=== PATIENT | female | born 1990 | race Caucasian/White ===

== ENCOUNTER 2024-03-08 15:42 | Outpatient (CLI) | payer BC, SELFPAY | END 2024-03-08 15:43 | disposition home or self-care (01) | PROVIDERS: PCP Family Medicine; Visit Provider Obstetrics & Gynecology | DX: O36.80X0 Pregnancy with inconclusive fetal viability, not applicable or unspecified (principal); O20.9 Hemorrhage in early pregnancy, unspecified; Z67.40 Type O blood, Rh positive | CPT/HCPCS: 84702; 86850; 86900; 86901 ==

== ENCOUNTER 2024-03-10 08:34 | Outpatient (CLI) | payer BC, SELFPAY | END 2024-03-10 08:35 | disposition home or self-care (01) | LOC: NFLDREF 03-11 12:55 | PROVIDERS: PCP Family Medicine; Referring Provider Family Medicine; Visit Provider Obstetrics & Gynecology | DX: O20.9 Hemorrhage in early pregnancy, unspecified (principal) | CPT/HCPCS: 84702 ==

== ENCOUNTER 2024-03-12 13:37 | Outpatient (CLI) | payer BC, SELFPAY | END 2024-03-12 13:38 | disposition home or self-care (01) | LOC: NFLDREF 03-15 06:43 | PROVIDERS: PCP Family Medicine; Referring Provider Family Medicine; Visit Provider Obstetrics & Gynecology | DX: O02.89 Other abnormal products of conception (principal) | CPT/HCPCS: 84702 ==

== ENCOUNTER 2024-03-17 13:02 | Outpatient (CLI) | payer BC, SELFPAY ==
--- NOTE | 2024-03-17 13:00 | CRLHL7_ITS ---
For Patients: As a result of the Century Cures Act, medical imaging exams and procedure reports are released immediately into your electronic medical record. You may view this report before your referring provider. If you have questions, please contact your health care provider. INDICATION: Abnormal vaginal bleeding in early . Down trending beta hCG. TECHNIQUE: Transabdominal and transvaginal limited obstetric ultrasound examination of the pelvis was performed. Grayscale and color Doppler images were obtained. COMPARISON: None. FINDINGS: Uterus: Normal in echotexture. No suspicious masses. Endometrium: No significant endometrial free fluid. Intrauterine gestation: Nonvisualized. Right Ovary: Measures 3.2 x 1.3 x 1.9 cm. No suspicious masses. Normal arterial and venous flow on color Doppler imaging. Left ovary: Measures 3.1 x 1.3 x 1.5 cm. Hypoechoic avascular left paraovarian structure measuring 3.5 cm. Normal arterial and venous flow on color Doppler imaging. Cul-de-sac: Trace amount of pelvic free fluid. IMPRESSION: 1. No intrauterine gestation identified. No definite ectopic identified. 2. Trace amount of pelvic free fluid. An ectopic can not be excluded. Recommend continued obstetric evaluation, serial beta HCG and repeat pelvic ultrasound in 7-10 days. Dictated by Shabbir Elam MD @ 03/17/2024 2:20:29 PM (Electronically Signed)
== END 2024-03-17 13:03 | disposition home or self-care (01) ==
LOC: US 13:03
PROVIDERS: PCP Family Medicine; Visit Provider Obstetrics & Gynecology
DX: O20.9 Hemorrhage in early pregnancy, unspecified (principal); O36.80X0 Pregnancy with inconclusive fetal viability, not applicable or unspecified
CPT/HCPCS: 76817

== ENCOUNTER 2024-03-17 13:51 | Outpatient (CLI) | payer BC, SELFPAY | END 2024-03-17 13:52 | disposition home or self-care (01) | LOC: NFLDREF 13:52 | PROVIDERS: PCP Family Medicine; Visit Provider Obstetrics & Gynecology | DX: O36.80X0 Pregnancy with inconclusive fetal viability, not applicable or unspecified (principal) | CPT/HCPCS: 76817; 80053; 84702 ==

== ENCOUNTER 2024-03-19 09:21 | Outpatient (CLI) | payer BC, SELFPAY | END 2024-03-19 09:22 | disposition home or self-care (01) | LOC: NFLDREF 03-20 22:58 | PROVIDERS: PCP Family Medicine; Referring Provider Family Medicine; Visit Provider Obstetrics & Gynecology | DX: O20.9 Hemorrhage in early pregnancy, unspecified (principal) | CPT/HCPCS: 84702 ==

== ENCOUNTER 2024-03-22 11:05 | Outpatient (CLI) | payer BC, SELFPAY | END 2024-03-22 11:06 | disposition home or self-care (01) | LOC: NFLDREF 17:32 | PROVIDERS: PCP Family Medicine; Referring Provider Family Medicine; Visit Provider Obstetrics & Gynecology | DX: O20.9 Hemorrhage in early pregnancy, unspecified (principal) | CPT/HCPCS: 84702 ==

== ENCOUNTER 2024-04-14 13:53 | Outpatient (CLI) | payer BC, SELFPAY | END 2024-04-14 13:54 | disposition home or self-care (01) | LOC: NFLDREF 04-19 03:40 | PROVIDERS: PCP Family Medicine; Referring Provider Family Medicine; Visit Provider Obstetrics & Gynecology | DX: O03.9 Complete or unspecified spontaneous abortion without complication (principal) | CPT/HCPCS: 84702 ==

== ENCOUNTER 2024-09-03 08:18 | Outpatient (CLI) | payer BC, SELFPAY | END 2024-09-03 08:19 | disposition home or self-care (01) | LOC: NFLDREF 09-06 01:08 | PROVIDERS: PCP Family Medicine; Referring Provider Family Medicine; Visit Provider Obstetrics & Gynecology | DX: O09.291 Supervision of pregnancy with other poor reproductive or obstetric history, first trimester (principal) | CPT/HCPCS: 84702 ==

== ENCOUNTER 2024-09-06 08:14 | Outpatient (CLI) | payer BC, SELFPAY | END 2024-09-06 08:15 | disposition home or self-care (01) | LOC: NFLDREF 15:11 | PROVIDERS: PCP Family Medicine; Referring Provider Family Medicine; Visit Provider Obstetrics & Gynecology | DX: O09.291 Supervision of pregnancy with other poor reproductive or obstetric history, first trimester (principal); Z3A.01 Less than 8 weeks gestation of pregnancy | CPT/HCPCS: 84702 ==

== ENCOUNTER 2024-09-07 17:29 | Outpatient (CLI) | payer BC, SELFPAY ==
--- NOTE | 2024-09-07 17:30 | CRLHL7_ITS ---
For Patients: As a result of the Century Cures Act, medical imaging exams and procedure reports are released immediately into your electronic medical record. You may view this report before your referring provider. If you have questions, please contact your health care provider. OB ULTRASOUND LESS THAN 14 WEEKS, 09/07/2024 CLINICAL HISTORY: Dating and viability. History of ectopic. COMPARISON: None. TECHNIQUE: Real time paiz scale imaging of the fetus was performed. Transvaginal imaging performed. FINDINGS: IMAGING: TV. LMP: 07/25/2024. BAKARI by LMP: 05/01/2025. GA: 6 weeks 2 days. CRL: 0.32 cm, 6 weeks 0 days. BAKARI 05/03/2025. FHR: 100 bpm. GEST SAC: 1.8 cm, appears WNL. YOLK SAC: 2.2 mm, appears WNL. RIGHT OV: WNL 3.7 x 1.9 x 2.9 cm. CL LEFT OV: WNL 2.1 X 1.0 X 1.2 cm. IMPRESSION: Single living intrauterine measuring 6 weeks 0 days and sonographic due date 05/03/2025. heart rate is low at 100 beats per minute. Follow-up recommended in 2-3 weeks. Finn Rich M.D. Diagnostic Radiologist [email or web address] Transcribed: 10:30 am DW/Dictated by: Finn Rich MD @ 09/08/2024 6:57:00 AM (Electronically Signed)
== END 2024-09-07 17:30 | disposition home or self-care (01) ==
LOC: US 17:30
PROVIDERS: PCP Family Medicine; Visit Provider Obstetrics & Gynecology
DX: O09.11 Supervision of pregnancy with history of ectopic pregnancy, first trimester (principal); Z3A.01 Less than 8 weeks gestation of pregnancy
CPT/HCPCS: 76817

== ENCOUNTER 2024-10-05 17:35 | Outpatient (CLI) | payer BC, SELFPAY ==
--- NOTE | 2024-10-05 17:30 | CRLHL7_ITS ---
For Patients: As a result of the Cures Act, medical imaging exams and procedure reports are released immediately into your electronic medical record. You may view this report before your referring provider. If you have questions, please contact your health care provider. OB ULTRASOUND INDICATION: Dating and viability. Follow-up from 09/07/2024. TECHNIQUE: Real time grayscale imaging of the fetus was performed. Transabdominal. LMP: 07/25/2024. BAKARI by LMP: 05/01/2025. GA: 10 w, 2 d. Previous US: Yes 09/07/2024. BAKARI by US: 05/03/2025. GA: 6 w, 0 d. CRL: 3.4 cm. 10 w 2 d. BAKARI: 05/01/2025. FHR: 169 BPM. Gestational sac: 5.2 cm. Appears within normal limits. Yolk sac: 3.4 mm. Appears within normal limits. Right ovary: 3.8 x 2.0 x 2.6 cm. CL. Left ovary: 3.4 x 1.4 x 2.3 cm. IMPRESSION: Single living intrauterine measuring 10 weeks 2 days with sonographic due date 05/01/2025. heart rate 169 beats per minute. Incidental corpus luteal cyst right ovary. Finn Rich M.D. Diagnostic Radiologist [email or web address] RABIA/[email or web address] [email or web address]/Dictated by: Finn Rich MD @ 10/06/2024 6:07:00 AM (Electronically Signed)
== END 2024-10-05 17:36 | disposition home or self-care (01) ==
LOC: US 17:36
PROVIDERS: PCP Family Medicine; Visit Provider Registered Nurse
DX: Z34.91 Encounter for supervision of normal pregnancy, unspecified, first trimester (principal); O34.81 Maternal care for other abnormalities of pelvic organs, first trimester; N83.11 Corpus luteum cyst of right ovary; Z3A.10 10 weeks gestation of pregnancy
CPT/HCPCS: 76801; 83021; 86703; 86706; 86803; 86850; 86900; 86901; 87086; 87340; 87491; 87591

== ENCOUNTER 2024-10-05 18:33 | Outpatient (CLI) | payer BC, SELFPAY ==
[2024-10-05 22:33] LABS: Chlamydia DNA Amplified* NOT DETECTED (No Detected); GC DNA Amplified* NOT DETECTED (No Detected)
== END 2024-10-05 18:34 | disposition home or self-care (01) ==
PROVIDERS: PCP Family Medicine; Visit Provider Registered Nurse
DX: Z34.91 Encounter for supervision of normal pregnancy, unspecified, first trimester (principal); Z3A.10 10 weeks gestation of pregnancy
CPT/HCPCS: 83020; 83021; 85660; 86592; 86703; 86704; 86706; 86762; 86787; 86803; 86850; 86900; 86901; 87086; 87340; 87491; 87591

== ENCOUNTER 2025-02-04 13:31 | Outpatient (CLI) | payer BC, SELFPAY ==
--- NOTE | 2025-02-04 13:45 | CRLHL7_ITS ---
For Patients: As a result of the Century Cures Act, medical imaging exams and procedure reports are released immediately into your electronic medical record. You may view this report before your referring provider. If you have questions, please contact your health care provider. OB ULTRASOUND FOLLOW-UP CLINICAL HISTORY: Low-lying placenta. TECHNIQUE: Real time paiz scale imaging of the fetus was performed. Transabdominal imaging performed. FINDINGS: BAKARI by LMP: 05/01/2025. GA: 27 weeks 5 days. Gestation: Single. COMPARISON: 12/08/2024, 10/05/2024, [facility] outside facility. Cervix: Visualized. Positioning: Transverse left. Amniotic Fluid: 5.9 cm SDP. Placenta: Technique: TA. Placenta Position: Posterior, right wall. Dopplers: Heart Rate: 150 bpm. BIOMETRY BPD: 6.8 cm, 27 weeks 1 day. 21.7% HC: 24.9 cm, 27 weeks 0 days. 7.9% AC: 22.9 cm, 27 weeks 2 days. 29.7% FL: 5.1 cm, 27 weeks 1 day. 19.1% FL/AC Ratio: 22.01% HC/AC Ratio: 1.09. EFW: 1042 grams, 2 lb 5 oz. Age by this US: 27 weeks 1 day. BAKARI by this US: 05/05/2025. Percentile by BAKARI: 20.3% IMPRESSION: 1. Sonographic gestational age 27 weeks 1 day and sonographic due date 05/05/2025. Good correlation with dates. Normal interval growth. 2. Estimated weight 20th percentile. Abdominal circumference 30th percentile. 3. Edge of the posterior placenta is located 3.5 cm from the internal cervical os. Finn Rich M.D. Diagnostic Radiologist [email or web address] Transcribed: 3:42 pm DW/Dictated by: Finn Rich MD @ 02/04/2025 2:20:00 PM (Electronically Signed)
== END 2025-02-04 13:32 | disposition home or self-care (01) ==
LOC: US 13:32
PROVIDERS: PCP Family Medicine; Visit Provider Advanced Practice Midwife
DX: O44.42 Low lying placenta NOS or without hemorrhage, second trimester (principal); Z3A.27 27 weeks gestation of pregnancy; O09.522 Supervision of elderly multigravida, second trimester; O99.342 Other mental disorders complicating pregnancy, second trimester; F19.20 Other psychoactive substance dependence, uncomplicated
CPT/HCPCS: 76816

== ENCOUNTER 2025-02-04 13:32 | Outpatient (CLI) | payer BC, SELFPAY | END 2025-02-04 13:33 | disposition home or self-care (01) | LOC: NFLDREF 02-09 21:53 | PROVIDERS: PCP Family Medicine; Referring Provider Family Medicine; Visit Provider Advanced Practice Midwife | DX: O09.522 Supervision of elderly multigravida, second trimester (principal); O99.342 Other mental disorders complicating pregnancy, second trimester; F19.20 Other psychoactive substance dependence, uncomplicated; Z3A.27 27 weeks gestation of pregnancy | CPT/HCPCS: 86592 ==

== ENCOUNTER 2025-03-04 10:03 | Outpatient (CLI) | payer BC, SELFPAY ==
--- NOTE | 2025-03-04 10:00 | CRLHL7_ITS ---
For Patients: As a result of the Century Cures Act, medical imaging exams and procedure reports are released immediately into your electronic medical record. You may view this report before your referring provider. If you have questions, please contact your health care provider. OB ULTRASOUND FOLLOW-UP CLINICAL HISTORY: Growth. TECHNIQUE: Real time paiz scale imaging of the fetus was performed. Transabdominal imaging performed. COMPARISON: 02/04/2025, 12/08/2024, 10/05/2024. FINDINGS: LMP: 07/25/2024. BAKARI by LMP: 05/01/2025. GA: 31 weeks 5 days. Gestation: Single. Cervix: Visualized. Positioning: Breech (oblique). Amniotic Fluid: 6.3 cm SDP. Placenta: Technique: TA. Placenta Position: Posterior, right wall. Dopplers: Heart Rate: 150 bpm. BIOMETRY BPD: 7.7 cm, 31 weeks 0 days. 20.9% HC: 28.6 cm, 31 weeks 3 days. 9.7% AC: 29.3 cm, 33 weeks 2 days. 87.7% FL: 5.7 cm, 29 weeks 6 days. 3.7% FL/AC Ratio: 19.4% HC/AC Ratio: 1.0. EFW: 1854 grams, 4 lb 1 oz. Age by this US: 31 weeks 3 days. BAKARI by this US: 05/03/2025. Percentile by BAKARI: 43.3% IMPRESSION: 1. Sonographic gestational age 31 weeks 3 days and sonographic due date 05/03/2025. Good correlation with dates. Normal interval growth. 2. Estimated weight 43rd percentile. Abdominal circumference 88th percentile. Finn Rich M.D. Diagnostic Radiologist [email or web address] Transcribed: 1:25 pm DW/Dictated by: Finn Rich MD @ 03/04/2025 12:14:00 PM (Electronically Signed)
== END 2025-03-04 10:04 | disposition home or self-care (01) ==
LOC: US 10:04
PROVIDERS: PCP Family Medicine; Visit Provider Advanced Practice Midwife
DX: Z34.93 Encounter for supervision of normal pregnancy, unspecified, third trimester (principal); Z3A.31 31 weeks gestation of pregnancy
CPT/HCPCS: 76816